=== PATIENT | male | born 1950 | race Caucasian/White ===

== ENCOUNTER 2017-10-17 19:30 | Outpatient (CLI) | payer MEDICARE, OTHER | END 2017-10-17 19:31 | disposition home or self-care (01) | LOC: SLEEPLAB 19:30 | PROVIDERS: ATTEND Family Medicine | DX: G47.33 Obstructive sleep apnea (adult) (pediatric) (principal); I25.10 Atherosclerotic heart disease of native coronary artery without angina pectoris; I10 Essential (primary) hypertension | CPT/HCPCS: 95811 ==

== ENCOUNTER 2017-10-26 11:19 | Outpatient (CLI) | payer MEDICARE, OTHER ==
--- NOTE | 2017-10-26 11:51 | RAD ---
TWO VIEWS CHEST: Date: 10-26-17 Comparison: 04-28-17 History: Dyspnea. FINDINGS: There are sternotomy wires. Normal cardiac silhouette. Pulmonary vessels and hilum are normal. Lungs are hyperinflated. Chronic changes of the left lung base. No pneumothorax. No osseous abnormalities. IMPRESSION: 1. Chronic changes. Hyperinflation. 2. Sequellae of previous granulomatous disease. POS: [facility]
== END 2017-10-26 11:20 | disposition home or self-care (01) ==
LOC: RAD 11:19
PROVIDERS: ATTEND Internal Medicine
DX: R06.00 Dyspnea, unspecified (principal); R91.8 Other nonspecific abnormal finding of lung field; G09 Sequelae of inflammatory diseases of central nervous system; D71 Functional disorders of polymorphonuclear neutrophils
CPT/HCPCS: 71046

== ENCOUNTER 2019-03-01 20:30 | Outpatient (CLI) | payer MEDICARE, OTHER | END 2019-03-01 20:31 | disposition home or self-care (01) | LOC: SLEEPLAB 20:30 | PROVIDERS: ATTEND Internal Medicine | DX: G47.33 Obstructive sleep apnea (adult) (pediatric) (principal); R06.83 Snoring; R53.83 Other fatigue; R35.1 Nocturia; R09.89 Other specified symptoms and signs involving the circulatory and respiratory systems | CPT/HCPCS: 95811 ==

== ENCOUNTER 2019-04-19 20:02 | Inpatient (IN) | payer MEDICARE, OTHER ==
[2019-04-19] MEDS ORDERED: Enoxaparin Sodium 80 MG/0.8 ML SYRINGE SC SCH (21:00)
--- NOTE | 2019-04-19 21:15 | RAD ---
Chest one view HISTORY: Chest pain. COMPARISON: 10/26/2017. FINDINGS: Cardiac silhouette and pulmonary vasculature are unremarkable. Mediastinum is midline with postoperative changes. Calcified granulomata are consistent with healed granulomatous disease. Linear scarring at the left base. No lobar consolidation or evidence of pneumothorax. IMPRESSION: Chronic-type findings are stable. No active cardiopulmonary abnormalities are demonstrate d.
[2019-04-19 21:19] LABS: #Eosinphils 0.1 thou/uL (0.0-0.7); #Lymphocytes 1.2 thou/uL (1.20-3.40); #Monocytes 0.7 thou/uL (0.11-0.59); #Neutrophils 6.5 thou/uL (1.40-6.50); %Basophils 0.5 % (0.0-1.0); %Eosinophils 1.5 % (0.0-10.0); %Lymphocytes 14.3 % (21.0-51.0); %Monocytes 7.8 % (0.0-10.0); %Neutrophils 75.9 % (42.0-75.0); Hemoglobin 15.3 g/dL (14.0-18.0); Mean Corpuscular HGB CONC 35.4 g/dL (32.0-36.0); Mean Corpuscular Hemoglobin 33.5 pg (27.0-31.0); Mean Corpuscular Volume 94.5 fL (78.0-98.0); Mean Platelet Volume 7.1 fL (7.4-10.4); Platelet Count 211 thou/uL (130-400); RBC Distribution Width 12.1 % (11.5-14.5); Red Blood Cell (RBC) Count 4.58 mill/uL (4.70-6.10); White Blood Cell (WBC) Count 8.6 thou/uL (4.8-10.8)
[2019-04-19] MEDS ORDERED: Aspirin 325 MG TAB ONE (21:30)
[2019-04-19 21:40] LABS: ALT (SGPT) 16 U/L (8-55); AST (SGOT) 46 U/L (5-34); Albumin 4.3 g/dL (3.4-4.8); Alkaline Phosphatase 54 U/L (40-150); Anion Gap 13 mmol/L (10-20); BUN (Urea Nitrogen) 16 mg/dL (8.4-25.7); Bilirubin, Total 0.7 mg/dL (0.2-1.2); CK (CPK) 393 U/L (30-200); Calc. Creatinine Clearance 0 mL/min (70-130); Calcium 9.6 mg/dL (7.8-10.44); Carbon Dioxide 25 mmol/L (23-31); Chloride 105 mmol/L (98-107); Estimated GFR-MDRD 87; Globulin 2.9 g/dL (2.4-3.5); Glucose 106 mg/dL (80-115); Potassium 3.7 mmol/L (3.5-5.1); Protein, Total 7.2 g/dL (5.8-8.1); Sodium 139 mmol/L (136-145)
[2019-04-19 22:12] LABS: CKMB 38.4 ng/mL (0-6.6)
[2019-04-19] MEDS ORDERED: Acetaminophen 650 MG Suppository PR PRN (23:39)
[2019-04-19] MEDS ORDERED: Ondansetron ODT 4 MG TAB PO PRN (23:39)
[2019-04-19] MEDS ORDERED: Ondansetron PF 4 MG/2 ML Vial IVP PRN (23:39)
[2019-04-19] MEDS ORDERED: Acetaminophen 325 MG TAB PO PRN (23:39)
--- NOTE | 2019-04-20 00:28 | HP ---
PRIMARY CARE DOCTOR: The patient follows with Dr. Montiel. CODE STATUS: Full code. TIME OF EVALUATION: 11:40 p.m. CHIEF COMPLAINT: Chest pain. HISTORY OF PRESENT ILLNESS: This is a 69-year-old male patient with past medical history of coronary artery disease, status post CABG in 2012. The patient has been doing well for the past few years. No significant coronary problems. The patient also has a history of hyperlipidemia, hypertension, came to the hospital after having severe chest pain today that was sudden onset. When he was jogging, the pain was radiating to his both shoulders and also his arms got weak. The pain relieved by itself to the point that he waited and scheduled an appointment to see Dr. Montiel. Dr. Montiel did a troponin, troponin was around 2. For that reason, he was sent here to the hospital. The troponins continue to trend up, last one was 4. Patient has been given Lovenox. Plan is to do cardiac cath in the morning. The symptoms were severe, triggered by exercise, alleviated by itself. REVIEW OF SYSTEMS: Patient also has associated nausea and chills. All other systems were reviewed and negative except for the findings mentioned above. PAST MEDICAL HISTORY: Positive for hyperlipidemia, hypertension, coronary artery disease. PAST SURGICAL HISTORY: CABG in 2012 for 5 vessels. PSYCHIATRIC HISTORY: No previous psych history. FAMILY HISTORY: Reviewed and noncontributory to current presentation. SOCIAL HISTORY: The patient drinks socially. No drugs. No smoking history. Lives with . KNOWN ALLERGIES: To penicillin. REPORTED MEDICATIONS: 1. Losartan. 2. Lipitor. 3. Ambien. PHYSICAL EXAMINATION: VITAL SIGNS: On presentation, blood pressure 124/76, heart rate 73, respiratory rate was 18, temperature 97.9. Pain was 0/10. Oxygen saturation was 96% on room air. GENERAL APPEARANCE: The patient is alert, oriented, in no acute distress. HEENT: Eyes; normal conjunctivae. Moist oral mucosa. Anicteric. No JVD. RESPIRATORY: Bilateral air entry. No rales. No wheezes. Symmetric expansion. CARDIOVASCULAR: Normal rate. Regular rhythm. No murmurs. No gallop. No edema. ABDOMEN: Soft. Normal bowel sounds. MUSCULOSKELETAL: Baseline range of motion and strength. SKIN: Warm and intact. No pallor. No rash. No redness. Capillary refill seems to be intact. NEUROLOGIC: No evidence of any new focal weakness. Cranial nerves seem to be intact. PSYCHIATRIC: The patient is in good mood. No anxiety. Optimal judgment. EKG was reviewed. The patient has a normal sinus rhythm with a rate of 69, no significant acute ischemic findings. Chest x-ray was reviewed. The patient has chronic findings that are stable. No active cardiopulmonary abnormalities were demonstrated. LABORATORY DATA: Reviewed. The patient has white count 9.6, hemoglobin 15.3, MCV 94.5, platelet count 211. Chemistry; sodium 139, potassium 3.7, chloride 105, carbon dioxide 25, anion gap 13, BUN 16, creatinine 0.87, GFR 87, glucose 106, calcium 9.6, total bilirubin 0.7. LFTs were negative. CK 393, CK-MB 38.4, troponin 4.257. Serum total protein 7.2, albumin 4.3, globulin 2.9, albumin globulin ratio is 1.5. ASSESSMENT AND PLAN: The patient will be placed in the hospital with following medical problems; 1. Non-STEMI. The patient has positive elevated troponin, normal EKG, the patient had chest pain. Home medications will be reconciled. The patient is getting Lovenox and will go for cardiac cath in the morning. 2. Controlled hypertension. We will reconcile home medications. This is chronic, stable. 3. Deep venous thrombosis prophylaxis. 4. Hyperlipidemia. Reconcile home medications. Low-cholesterol diet is advised. Job ID: [id number]
[2019-04-20 01:10] LABS: Troponin I 7.747 ng/mL (< 0.028)
[2019-04-20 02:58] VITALS: BMI 23.2
[2019-04-20 06:36] LABS: #Eosinphils 0.1 thou/uL (0.0-0.7); #Lymphocytes 1.3 thou/uL (1.20-3.40); #Monocytes 0.6 thou/uL (0.11-0.59); #Neutrophils 4.7 thou/uL (1.40-6.50); %Basophils 0.7 % (0.0-1.0); %Eosinophils 1.2 % (0.0-10.0); %Lymphocytes 18.7 % (21.0-51.0); %Monocytes 9.3 % (0.0-10.0); %Neutrophils 70.1 % (42.0-75.0); Hemoglobin 14.8 g/dL (14.0-18.0); Mean Corpuscular HGB CONC 34.4 g/dL (32.0-36.0); Mean Corpuscular Hemoglobin 32.1 pg (27.0-31.0); Mean Corpuscular Volume 93.4 fL (78.0-98.0); Mean Platelet Volume 7.2 fL (7.4-10.4); Platelet Count 190 thou/uL (130-400); RBC Distribution Width 12.1 % (11.5-14.5); White Blood Cell (WBC) Count 6.7 thou/uL (4.8-10.8)
[2019-04-20 06:58] LABS: Anion Gap 11 mmol/L (10-20); BUN (Urea Nitrogen) 13 mg/dL (8.4-25.7); Calc. Creatinine Clearance 92 mL/min (70-130); Calcium 9.2 mg/dL (7.8-10.44); Carbon Dioxide 24 mmol/L (23-31); Chloride 107 mmol/L (98-107); Estimated GFR-MDRD Greater than 90; Glucose 90 mg/dL (80-115); Potassium 3.8 mmol/L (3.5-5.1); Sodium 138 mmol/L (136-145)
[2019-04-20] MEDS ORDERED: Zolpidem Tartrate 5 MG TAB PO PRN (07:33)
[2019-04-20] MEDS ORDERED: Nitroglycerin 0.4 MG TAB (25 Tab Bottle) PO PRN (07:34)
[2019-04-20] MEDS ORDERED: Nitroglycerin 2% Ointment 1 INCH/1 GM Packet TOP SCH (07:45)
[2019-04-20] MEDS ORDERED: Lidocaine 1% (PF) 30 ML VIAL ONE (08:23)
[2019-04-20] MEDS ORDERED: Diazepam 5 MG TAB PO SCH (08:30)
[2019-04-20] MEDS ORDERED: Communication Order-Pharmacy FS SCH (08:30)
[2019-04-20] MEDS: Losartan 25 MG TAB PO SCH ×2 (08:36→21:24)
[2019-04-20] MEDS: Sodium Chloride 0.9% 1,000 ML IV SCH ×2 (08:38→18:35)
[2019-04-20] MEDS: Metoprolol Tartrate 25 MG TAB PO SCH ×2 (08:47→21:25)
[2019-04-20 08:48] LABS: CKMB 49.7 ng/mL (0-6.6)
[2019-04-20] MEDS ORDERED: Aspirin 325 MG TAB PO SCH (09:00)
[2019-04-20] MEDS ORDERED: Aspirin 325 mg Enteric Coated Tablet PO SCH (09:00)
--- NOTE | 2019-04-20 09:04 | PRG ---
DATE OF SERVICE: 04/20/2019 Mr. Zelaya is a 69-year-old gentleman, who presented to our office yesterday. He earlier in the day had had gone for a run, who is very hot and he had to stop because he had bilateral arm pain. The arm pain resolved very slowly. He is seen in our office. EKG reveals a previous inferior infarct, but no other acute changes. Because of concern for the length of the duration of the discomfort, he was sent to the lab for troponin level. The troponin level was 2.339. Therefore, he was referred to the emergency room. The patient's troponin in followup was 4.257, then 7.7 and this morning, 9.78. The patient therefore is scheduled for cardiac catheterization. He understands risk including stroke, heart attack, iodine allergy, loss of blood supply to leg or kidney, stent thrombosis, stent restenosis, and may be that he has occluded small saphenous vein graft, in which case medical therapy will be the most appropriate. If he does have a significant stenosis amenable to stenting that will be performed. He was loaded with Brilinta 180 mg yesterday. He is also on aspirin. The patient understands and wishes to proceed. Job ID: [id number]
[2019-04-20] MEDS ORDERED: Fentanyl 100 MCG/2 ML VIAL ONE ×3 (09:05→13:54)
[2019-04-20] MEDS ORDERED: Midazolam HCl 2 mg/2 ml Vial ONE ×2 (09:05→10:26)
[2019-04-20] MEDS ORDERED: Iopamidol 370 76% 50 ML VIAL FS ONE (09:48)
[2019-04-20] MEDS ORDERED: Iopamidol 370 76% 100 ML VIAL ONE (09:48)
[2019-04-20] MEDS ORDERED: Nitroglycerin 100MG/250ML BOT 250 ML ONE (09:52)
[2019-04-20] MEDS ORDERED: Heparin 10,000 UNITS/1 ML VIAL ONE (09:52)
[2019-04-20 10:08] LABS: Cardiac Risk 2.4 (Less than 4.5)
--- NOTE | 2019-04-20 11:03 | PDOC.HOSPP ---
- Subjective Encounter Date: 04/20/19 Encounter Time: 08:30 Subjective: Patient seen and examined for NSTEMI. No CP or SOB. No new complaints. No overnight events - Objective Vital Signs & Weight: Vital Signs (12 hours) Temp Pulse Resp BP Pulse Ox 04/20/19 08:00 97.6 F 68 17 136/76 96 04/20/19 03:20 97.6 F 71 16 138/86 98 04/20/19 01:55 97.6 F 70 18 129/73 96 Weight Weight 162 lb 1.6 oz I&O: 04/19/19 04/20/19 04/21/19 06:59 06:59 06:59 Intake Total 300 Balance 300 Result Diagrams: 04/20/19 06:12 04/20/19 06:12 Additional Labs: Laboratory Tests 04/20/19 06:12 CK-MB (CK-2) 49.7 H* Troponin I 9.780 H* EKG Reviewed by me: Yes (Tele SR) Hospitalist ROS - Review of Systems Respiratory: denies: cough, dry, shortness of breath, hemoptysis, SOB with excertion, pleuritic pain, sputum, wheezing, other Cardiovascular: denies: chest pain, palpitations, orthopnea, paroxysmal noc. dyspnea, edema, light headedness, other Gastrointestinal: denies: nausea, vomitting, abdominal pain, diarrhea, constipation, melena, hematochezia, other - Medication Medications: Active Medications Generic Name Dose Route Start Last Admin Trade Name Freq PRN Reason Stop Dose Admin Aspirin 325 mg 04/20/19 09:00 04/20/19 08:41 Ecotrin PO Not Given DAILY JOY Sodium Chloride 1,000 mls @ 100 mls/hr 04/20/19 08:30 04/20/19 08:38 Normal Saline 0.9% IV Not Given .Q10H JOY Losartan Potassium 12.5 mg 04/20/19 09:00 04/20/19 08:36 Cozaar PO 12.5 mg BID JOY Administration Metoprolol Tartrate 12.5 mg 04/20/19 09:00 04/20/19 08:47 Lopressor PO 12.5 mg BID JOY Administration Nitroglycerin 0.5 inch 04/20/19 07:45 04/20/19 08:38 Nitro-Bid 2% Ointment TOP Not Given Q8H JOY Sodium Chloride 10 ml 04/20/19 09:00 04/20/19 08:41 Flush - Normal Saline IVF 10 ml Q12HR JOY Administration - Exam General Appearance: NAD, awake alert Eye: anicteric sclera ENT: normocephalic atraumatic Neck: supple, no JVD Heart: RRR, no murmur, no gallops, no rubs Respiratory: CTAB, no wheezes, no rales, no ronchi Gastrointestinal: soft, non-tender, non-distended, normal bowel sounds Extremities: no edema Skin: no rashes Psychiatric: normal affect, A&O x 3 Hosp A/P (1) NSTEMI (non-ST elevated myocardial infarction) Code(s): I21.4 - NON-ST ELEVATION (NSTEMI) MYOCARDIAL INFARCTION Status: Acute (2) CAD (coronary artery disease) Code(s): I25.10 - ATHSCL HEART DISEASE OF [place] CORONARY ARTERY W/O ANG PCTRS Status: Chronic (3) HTN (hypertension) Code(s): I10 - ESSENTIAL (PRIMARY) HYPERTENSION Status: Chronic (4) HLD (hyperlipidemia) Code(s): E78.5 - HYPERLIPIDEMIA, UNSPECIFIED Status: Chronic - Plan plan discussed w/ family Cont ASA Resume Statins Add low dose Coreg Resume Losartan Cath today
[2019-04-20] MEDS ORDERED: TICAGRELOR 90 MG TABLET ONE (11:16)
[2019-04-20] MEDS ORDERED: Fentanyl 100 MCG/2 ML VIAL SLOW IVP PRN (13:53)
[2019-04-20] MEDS ORDERED: Fentanyl 100 MCG/2 ML VIAL SLOW IVP SCH ×2 (14:00→17:30)
[2019-04-20] MEDS ORDERED: traMADol HCl 50 MG TAB PO PRN (14:00)
[2019-04-20] MEDS ORDERED: Atorvastatin Calcium 40 MG TAB PO SCH (21:00)
[2019-04-20] MEDS: TICAGRELOR 90 MG TABLET PO SCH (21:22)
[2019-04-21 05:49] LABS: #Monocytes 0.7 thou/uL (0.11-0.59); #Neutrophils 5.1 thou/uL (1.40-6.50); %Basophils 0.7 % (0.0-1.0); %Eosinophils 0.6 % (0.0-10.0); %Lymphocytes 14.4 % (21.0-51.0); %Monocytes 10.4 % (0.0-10.0); %Neutrophils 73.9 % (42.0-75.0); Hemoglobin 14.4 g/dL (14.0-18.0); Mean Corpuscular HGB CONC 33.2 g/dL (32.0-36.0); Mean Corpuscular Hemoglobin 31.7 pg (27.0-31.0); Mean Corpuscular Volume 95.4 fL (78.0-98.0); Mean Platelet Volume 7.4 fL (7.4-10.4); Platelet Count 183 thou/uL (130-400); RBC Distribution Width 12.2 % (11.5-14.5); Red Blood Cell (RBC) Count 4.55 mill/uL (4.70-6.10); White Blood Cell (WBC) Count 6.8 thou/uL (4.8-10.8)
[2019-04-21 06:12] LABS: ALT (SGPT) 18 U/L (8-55); AST (SGOT) 62 U/L (5-34); Albumin 3.6 g/dL (3.4-4.8); Alkaline Phosphatase 49 U/L (40-150); Anion Gap 12 mmol/L (10-20); BUN (Urea Nitrogen) 10 mg/dL (8.4-25.7); Bilirubin, Total 1.4 mg/dL (0.2-1.2); Calc. Creatinine Clearance 95 mL/min (70-130); Calcium 8.7 mg/dL (7.8-10.44); Carbon Dioxide 24 mmol/L (23-31); Chloride 105 mmol/L (98-107); Estimated GFR-MDRD Greater than 90; Globulin 2.4 g/dL (2.4-3.5); Glucose 77 mg/dL (80-115); Potassium 3.7 mmol/L (3.5-5.1); Sodium 137 mmol/L (136-145)
[2019-04-21] MEDS ORDERED: Aspirin Chewable 81 MG TAB PO SCH (09:00)
[2019-04-21] MEDS: Metoprolol Tartrate 25 MG TAB PO SCH (09:32)
[2019-04-21] MEDS: TICAGRELOR 90 MG TABLET PO SCH (09:32)
[2019-04-21] MEDS: Losartan 25 MG TAB PO SCH (09:32)
[2019-04-21 13:27] VITALS: TEMP 98.9
--- NOTE | 2019-04-21 13:53 | PRG ---
DATE OF SERVICE: 04/21/2019 SUBJECTIVE: Mr. Zelaya is doing well today. No chest pain or pressure. His groin feels fine. OBJECTIVE: VITAL SIGNS: Blood pressure 114/79, pulse 89 LUNGS: Clear. CARDIAC: Normal S1, normal S2. ASSESSMENT: 1. Status post non-ST elevation myocardial infarction. 2. Previous bypass surgery. 3. Hypercholesterolemia, controlled. PLAN: 1. We will go home on ticagrelor 90 mg twice a day. 2. Aspirin 81 mg a day. 3. Toprol-XL 25 mg a day. 4. Losartan 25 mg a day. 5. Atorvastatin 40 mg a day. Job ID: [id number] MTDD
[2019-04-21 15:48] VITALS: BP 101/62
--- NOTE | 2019-04-23 16:44 | EKG ---
Test Reason : S/P STENT Blood Pressure : / mmHG Vent. Rate : 057 BPM Atrial Rate : 057 BPM P-R Int : 184 ms QRS Dur : 094 ms QT Int : 444 ms P-R-T Axes : 065 -10 -03 degrees QTc Int : 432 ms Sinus bradycardia Minimal voltage criteria for LVH, may be normal variant Inferior infarct (cited on or before 25-JAN-2012) Abnormal ECG Confirmed by NORMAN FOREMAN ([id number]) on 04/23/2019 4:44:18 PM Referred By: MACIEJ Confirmed By:NORMAN FOREMAN
== END 2019-04-21 15:00 | disposition home or self-care (01) | DRG 247 ==
LOC: ERS 20:02 → ERHOLD 22:16 → OBSVTOIN 23:49 → 2NO 04-20 02:22
PROVIDERS: ADMIT Hospitalist; ATTEND Hospitalist
PROC: 027036Z Dilation of Coronary Artery, One Artery with Three Drug-eluting Intraluminal Devices, Percutaneous Approach (ICD-10-PCS; principal; 2019-04-20)
PROC: 4A023N7 Measurement of Cardiac Sampling and Pressure, Left Heart, Percutaneous Approach (ICD-10-PCS; 2019-04-20)
PROC: B2131ZZ Fluoroscopy of Multiple Coronary Artery Bypass Grafts using Low Osmolar Contrast (ICD-10-PCS; 2019-04-20)
PROC: B2151ZZ Fluoroscopy of Left Heart using Low Osmolar Contrast (ICD-10-PCS; 2019-04-20)
PROC: B2111ZZ Fluoroscopy of Multiple Coronary Arteries using Low Osmolar Contrast (ICD-10-PCS; 2019-04-20)
DX: I21.4 Non-ST elevation (NSTEMI) myocardial infarction (principal); I25.10 Atherosclerotic heart disease of native coronary artery without angina pectoris; E78.00 Pure hypercholesterolemia, unspecified; I10 Essential (primary) hypertension; Z79.899 Other long term (current) drug therapy; Z95.1 Presence of aortocoronary bypass graft; Z88.0 Allergy status to penicillin
CPT/HCPCS: 36415; 71045; 76942; 80048; 80053; 80061; 82550; 82553; 83735; 84484; 85025; 85347; 92928; 93005; 93010; 93306; 93455; 93798; 94760; 96372; 99152; 99153; C1769; C1874; C1887; C9600; J1644; J1650; J2001; J2250; J3010; Q9967

== ENCOUNTER 2019-04-23 10:46 | Inpatient (IN) | payer MEDICARE, OTHER ==
[2019-04-23] MEDS ORDERED: ISOVUE-370 76%-LOCM 1 ML ONE (10:50)
[2019-04-23 11:20] LABS: #Eosinphils 0.1 thou/uL (0.0-0.7); #Monocytes 0.7 thou/uL (0.11-0.59); #Neutrophils 6.8 thou/uL (1.40-6.50); %Basophils 0.3 % (0.0-1.0); %Eosinophils 0.6 % (0.0-10.0); %Lymphocytes 11.8 % (21.0-51.0); %Monocytes 7.9 % (0.0-10.0); %Neutrophils 79.4 % (42.0-75.0); Hemoglobin 13.7 g/dL (14.0-18.0); Mean Corpuscular HGB CONC 33.6 g/dL (32.0-36.0); Mean Corpuscular Volume 95.3 fL (78.0-98.0); Mean Platelet Volume 7.7 fL (7.4-10.4); Platelet Count 164 thou/uL (130-400); RBC Distribution Width 12.3 % (11.5-14.5); Red Blood Cell (RBC) Count 4.27 mill/uL (4.70-6.10); White Blood Cell (WBC) Count 8.6 thou/uL (4.8-10.8)
--- NOTE | 2019-04-23 11:50 | RAD ---
CHEST 1 VIEW: Date: 04/23/19 INDICATION: Syncope. COMPARISON: Prior exam dated 04/19/19. FINDINGS: Calcified granuloma of the right upper lobe is stable. Emphysematous change is similar appearing. Pos t CABG change is stable. No consolidation, pleural effusion, or pneumothorax is evident. No acute oss eous abnormality is evident. IMPRESSION: No acute cardiopulmonary abnormality. POS: OFF
[2019-04-23 11:52] LABS: ALT (SGPT) 14 U/L (8-55); AST (SGOT) 27 U/L (5-34); Albumin 3.6 g/dL (3.4-4.8); Alkaline Phosphatase 47 U/L (40-150); Anion Gap 13 mmol/L (10-20); BUN (Urea Nitrogen) 12 mg/dL (8.4-25.7); Bilirubin, Total 0.9 mg/dL (0.2-1.2); Calc. Creatinine Clearance 0 mL/min (70-130); Calcium 8.8 mg/dL (7.8-10.44); Carbon Dioxide 23 mmol/L (23-31); Chloride 107 mmol/L (98-107); Estimated GFR-MDRD Greater than 90; Globulin 2.4 g/dL (2.4-3.5); Glucose 114 mg/dL (80-115); Potassium 3.7 mmol/L (3.5-5.1); Sodium 139 mmol/L (136-145)
[2019-04-23 12:10] LABS: CKMB 1.7 ng/mL (0-6.6)
--- NOTE | 2019-04-23 14:34 | CT ---
Exam: CT angiogram of the chest HISTORY: Syncope COMPARISON: None TECHNIQUE: CT angiogram of the chest is performed in the axial plane. Three-dimensional reformatted i mages are submitted for interpretation FINDINGS: Mediastinum: No mass, lymphadenopathy or hematoma. HEART: Normal size. No significant pericardial fluid. Aorta: No aneurysm or dissection Upper solid abdominal viscera: No abnormality enhancement. 3.4 cm cyst in the left kidney. Trachea and central bronchi: Patent Pleural spaces: No effusion Lung parenchyma: No masses or consolidation. Linear opacities likely represent atelectatic change. Po ssible scarring in the left lower lobe is noted. Pneumothorax: None Osseous structures: No lytic or blastic lesions Pulmonary arteries: Adequate contrast opacification pulmonary arterial system to the level of segment al arteries. No filling defect to suggest pulmonary embolism IMPRESSION: 1. No evidence of pulmonary artery embolism to the level of segmental arteries 2. Scarring and atelectasis in the lung bases. 3. Left renal cyst.
[2019-04-23 15:47] LABS: Troponin I 2.551 ng/mL (< 0.028)
[2019-04-23] MEDS ORDERED: Nitroglycerin 0.4 MG TAB (25 Tab Bottle) SL PRN (16:21)
[2019-04-23 16:33] VITALS: BMI 23.3
--- NOTE | 2019-04-23 17:58 | HP ---
PRIMARY CARE PROVIDER: Dr. Everett Douglas. [facility] HISTORY OF PRESENT ILLNESS: The patient had coronary artery bypass graft with 5 bypasses in 2011. A 5 days ago, he was jogging and he got pain in both arms and elbows. It dissipated over about an hour and a half. They called Dr. Montiel. He went and saw him. EKG was okay, but the troponin was 2. He went to the hospital. Troponins actually went up to 5 and 7. He had no chest pain with that. He had a cardiac cath and 3 PCIs in the occluded right coronary artery. Two stays later , he was somewhat lightheaded. He had been started on metoprolol and Brilinta. This a.m., he got up, had some coffee, was sitting, stood up, fainted, had nausea and vomiting x3. He went and sat as a lazy boy. He had some peripheral vision defect with some spots before his eyes. He got into the car and his was driving him to the ER. When he passed out again, she pulled into the fire station. He was brought to the emergency room by ambulance. By history, his pulse rate was high 40s to low 50s at that time. Currently, he is awake and alert. No chest pain. No shortness of breath. No arm pain. His lowest blood pressure recorded in the emergency room was 129/77 with a pulse of 67. PAST MEDICAL HISTORY: As mentioned before, he had a myocardial infarction and he had coronary artery bypass in 2011. He had PCI in right coronary artery 5 days ago. He has a history of hypertension and dyslipidemia. ALLERGIES: HIS CURRENT ALLERGIES, PENICILLIN. MEDICATIONS: Current medications; 1. Ambien 5 mg at bedtime p.r.n. 2. Brilinta 90 mg p.o. b.i.d. 3. Nitrostat 0.4 mg p.r.n. q.5 minutes. 4. Metoprolol 25 mg a day. 5. Cozaar 12.5 mg twice a day. 6. Atorvastatin 40 mg at bedtime. 7. Aspirin 81 mg daily. SOCIAL HISTORY: Retired captain/airline pilot. Lives with his . Full code status. Has occasional social drink. No smoking history. No illicit drugs. FAMILY HISTORY: No coronary artery disease at young age. REVIEW OF SYSTEMS: GENERAL: Prior to this episode, he has had no dizziness, fainting. HEENT: Eyes; spots before his eyes this morning, none previous. No double vision or blurred vision. Ears, nose, and throat; no ear pain or drainage. No nasal bleeding. No trouble swallowing. CARDIAC: No chest pain, orthopnea, or paroxysmal nocturnal dyspnea. RESPIRATION: No cough, wheezing, or asthma. GASTROINTESTINAL: No nausea, vomiting, diarrhea, or constipation. GENITOURINARY: Frequent nocturia, frequency in the daytime. No dysuria. No hematuria. MUSCULOSKELETAL: No pain or swelling in his arms or legs. Other than that, described in the present illness. NEUROLOGICAL: No strokes, seizures, or focal weakness. PSYCHIATRIC: No anxiety or depression. SKIN: No bruising, bleeding, or rash. HEME/LYMPH: No tender or swollen lymph nodes in axilla, inguinal, cervical area. PHYSICAL EXAMINATION: GENERAL: Alert, oriented, cooperative, pleasant gentleman. VITAL SIGNS: His blood pressure was 130/80, pulse 68, respirations 16, temperature 98. HEAD, EYES, EARS, NOSE, AND THROAT: Pupils are equal, round, and reactive to light. Extraocular movements are intact. Sclerae are white. Tympanic membranes are clear. Nose is clear. Oral mucous membranes are wet. NECK: Supple without jugular venous distention, adenopathy, or thyromegaly. CHEST: Clear to auscultation and percussion. HEART: Had a regular rate and rhythm. First and second heart sounds are clear. There are no appreciated murmurs or gallops. ABDOMEN: Soft. Bowel sounds are normal. No hepatosplenomegaly. No masses. No bruits. EXTREMITIES: No cyanosis, clubbing, or edema. PULSES: Carotid, radial, femoral, and dorsalis pedis pulses intact and symmetric. SKIN: Warm and dry without bruises or rash. HEME/LYMPH: No tender or swollen lymph nodes in axilla, inguinal, or cervical area. NEUROLOGIC: Cranial nerves 2 through 12 are intact. DIAGNOSTIC DATA: EKG, regular sinus rhythm, evidence for old inferior myocardial infarction, some minimal T-wave abnormality in the lateral precordial leads, reviewed by me. His chest x-ray reviewed by myself reveals clear lung martinez, vertical heart. No evidence for CHF, pneumothorax, pneumonia, etc. His CT of the thorax done for pulmonary emboli without getting a D-dimer first, it was negative. LABORATORY DATA: CBC; white count 8.6, hemoglobin 13.7, and platelet count 164, 000. Comprehensive metabolic profile is normal. Troponin-I 2.2, 2.5. ASSESSMENT AND PLAN: 1. Syncope. 2. Coronary artery disease with recent PCI and moderately elevated troponins. 3. Recent addition of beta ro and Brilinta. The patient has hypertension, not hypertensive on current study. Has dyslipidemia, on atorvastatin. At this time , we will proceed with orthostatic blood pressure measurements q.4 hours. The patient will be monitored overnight. Carotid ultrasound will be ordered. Case has been discussed with Dr. Montiel. He will see the patient in the morning. He will see him tonight if anything urgent happens. The patient's medicine will be continued. Job ID: [id number] MTDD
--- NOTE | 2019-04-23 19:44 | PRG ---
DATE OF SERVICE: SUBJECTIVE: Mr. Zelaya had two syncopal episodes today. One early in the morning, he got up to get some coffee, felt weak and lightheaded and then lost consciousness, woke up underneath his desk. He recovered. He did not have any arm pain or chest pain. We talked to his friend, Dr. Hernandez. Dr. Hernandez recommended he go to the emergency room. He was driven to the emergency room by his . However, en route while Mr. Zelaya was in the sitting position. He lost consciousness again and his said he looked "scary," unresponsive. She pulled into the emergency medical services assistant area, the fire department. They brought him to the emergency room on emergency basis. The patient has been okay since he has been here. PAST HISTORY: Recent saphenous vein graft occlusion of the right coronary and extensive stenting done in the [place] right coronary as outlined in the chart with good result. The stent did extend distally into the right coronary all the way to the very proximal segment. The lesion did go near the AV niecy artery and this was stented across in order to reach normal nonobstructive portion of the artery. There were three long stents placed as mentioned. The patient did not have any arm pain with this episode. The patient is doing fine now. PHYSICAL EXAMINATION: VITAL SIGNS: Blood pressure 127/66, pulse 67. LUNGS: Clear. CARDIAC: Normal S1, normal S2. ABDOMEN: Soft, nontender. EXTREMITIES: No clubbing or cyanosis. There is no edema. DIAGNOSTIC DATA: EKG shows a previous infarct. No acute changes. The GA interval was within normal limits. ASSESSMENT: 1. Recent inferior myocardial infarction with a peak troponin of 9 and is related to the saphenous vein graft occlusion to the right coronary artery branch, which was supplying the right coronary. 2. Two syncopal episodes, the first could have potentially been orthostatic hypotension, but the second is suspicious for a dysrhythmia. I am concerned that he may have had some transient AV block or even ventricular arrhythmias. His ejection fraction most recently was thought to be 40% on catheterization, but actually 50% to 55% on echocardiogram prior to discharge. Ventricular arrhythmias could be possible, but I think statistically especially in view of the situation, this could have also been AV niecy block. We will monitor the patient overnight and reassess. Consideration for EP consultation will be given depending on the situation. He may need a pacemaker. If no dysrhythmias identified, consideration for LifeVest will be given. Job ID: [id number]
[2019-04-23] MEDS: TICAGRELOR 90 MG TABLET PO SCH (20:49)
[2019-04-23] MEDS: Losartan 25 MG TAB PO SCH (20:49)
[2019-04-23] MEDS: Atorvastatin Calcium 40 MG TAB PO SCH (20:49)
[2019-04-23] MEDS: Zolpidem Tartrate 5 MG TAB PO PRN (21:56)
[2019-04-24 06:26] LABS: Anion Gap 9 mmol/L (10-20); BUN (Urea Nitrogen) 13 mg/dL (8.4-25.7); Calc. Creatinine Clearance 88 mL/min (70-130); Calcium 9.1 mg/dL (7.8-10.44); Carbon Dioxide 26 mmol/L (23-31); Chloride 105 mmol/L (98-107); Estimated GFR-MDRD Greater than 90; Glucose 94 mg/dL (80-115); Potassium 3.9 mmol/L (3.5-5.1); Sodium 136 mmol/L (136-145)
[2019-04-24 06:35] LABS: Troponin I 3.117 ng/mL (< 0.028)
--- NOTE | 2019-04-24 07:49 | ULT ---
US Carotid Doppler STANDARD History: Syncope Comparison: None. Findings: Real-time grayscale and color evaluation extracranial carotid and vertebral arteries was pe rformed. Moderate atherosclerotic plaque both proximal internal carotid arteries. Antegrade flow both vertebra l arteries. No elevated peak systolic velocities within the internal carotid arteries. Impression: No hemodynamically significant stenosis.
[2019-04-24] MEDS: Aspirin Chewable 81 MG TAB PO SCH (09:17)
[2019-04-24] MEDS: TICAGRELOR 90 MG TABLET PO SCH ×2 (09:17→21:23)
[2019-04-24] MEDS: Losartan 25 MG TAB PO SCH ×2 (09:17→21:23)
[2019-04-24] MEDS: Enoxaparin Sodium 40 MG/0.4 ML SYRINGE SC SCH (09:18)
--- NOTE | 2019-04-24 12:30 | PDOC.HOSPP ---
- Subjective Encounter Date: 04/24/19 Encounter Time: 12:28 Subjective: near syncope with bradycardia overnite - Objective Vital Signs & Weight: Vital Signs (12 hours) Temp Pulse Resp BP BP Pulse Ox 04/24/19 12:04 97.4 F L 67 20 139/69 97 04/24/19 07:17 97.8 F 71 16 115/70 94 L 04/24/19 03:39 65 18 142/80 H Weight Weight 163 lb I&O: 04/23/19 04/24/19 04/25/19 06:59 06:59 06:59 Intake Total 600 Balance 600 Result Diagrams: 04/23/19 11:02 04/24/19 05:23 Hospitalist ROS - Medication Medications: Active Medications Generic Name Dose Route Start Last Admin Trade Name Freq PRN Reason Stop Dose Admin Aspirin 81 mg 04/24/19 09:00 04/24/19 09:17 Aspirin Chewable PO 81 mg DAILY JOY Administration Atorvastatin Calcium 40 mg 04/23/19 21:00 04/23/19 20:49 Lipitor PO 40 mg HS JOY Administration Enoxaparin Sodium 40 mg 04/24/19 09:00 04/24/19 09:18 Lovenox SC Not Given 0900 JOY Losartan Potassium 12.5 mg 04/23/19 21:00 04/24/19 09:17 Cozaar PO 12.5 mg BID JOY Administration Metoprolol Succinate 12.5 mg 04/24/19 09:00 04/24/19 09:17 Toprol Xl PO 12.5 mg DAILY JOY Administration Ticagrelor 90 mg 04/23/19 21:00 04/24/19 09:17 Brilinta PO 90 mg BID JOY Administration Zolpidem Tartrate 5 mg 04/23/19 16:21 04/23/19 21:56 Ambien PO 5 mg HSPRN PRN Administration Insomnia - Exam Neck: no JVD Heart: RRR, no murmur Respiratory: CTAB Gastrointestinal: soft, normal bowel sounds Extremities: no clubbing, no edema Hosp A/P (1) Syncope Code(s): R55 - SYNCOPE AND COLLAPSE Status: Acute (2) Bradycardia with 31-40 beats per minute Code(s): R00.1 - BRADYCARDIA, UNSPECIFIED Status: Acute (3) CAD (coronary artery disease) Code(s): I25.10 - ATHSCL HEART DISEASE OF [place] CORONARY ARTERY W/O ANG PCTRS Status: Chronic Qualifiers: Coronary Disease-Associated Artery/Lesion type: [place] artery [place] vs. transplanted heart: [place] heart Associated angina: without angina Qualified Code(s): I25.10 - Atherosclerotic heart disease of [place] coronary artery without angina pectoris (4) HLD (hyperlipidemia) Code(s): E78.5 - HYPERLIPIDEMIA, UNSPECIFIED Status: Chronic Qualifiers: Hyperlipidemia type: unspecified Qualified Code(s): E78.5 - Hyperlipidemia , unspecified (5) HTN (hypertension) Code(s): I10 - ESSENTIAL (PRIMARY) HYPERTENSION Status: Chronic Qualifiers: Hypertension type: essential hypertension Qualified Code(s): I10 - Essential (primary) hypertension - Plan off B-ro. discuss with cardiology
--- NOTE | 2019-04-24 18:26 | PRG ---
DATE OF SERVICE: 04/24/2019 SUBJECTIVE: Mr. Zelaya had an episode of bradycardia last night. Early in the morning, he had gotten up to urinate, his heart rate dropped to about 30 beats per minute. He feels near syncopal. He had another episode of lightheadedness in the sitting position, but this was not associated with any dysrhythmia. No chest pain or arm pain. OBJECTIVE: VITAL SIGNS: His blood pressure is 117/66, pulse 62. LUNGS: Clear. CARDIAC: Normal S1, normal S2. ASSESSMENT: 1. Status post recent myocardial infarction, relatively small amount of injury in terms of troponin level with a peak troponin of 9.7. 2. Recent saphenous vein graft occlusion to the right coronary artery. The main right coronary artery is stented. The graft actually went to the posterior descending artery, the vessel is occluded. He does have previous inferior infarct as well. 3. Syncopal episode, suspect related to bradyarrhythmia, but he does have an area of previous infarct in the inferior wall with most recent ejection fraction on echocardiogram on 04/21 showing ejection fraction of 50%, inferior hypokinesis. PLAN: Electrophysiologic consultation, consideration for pacemaker insertion. The more complicated situation is that he has had a recent infarct, which does complicate the potential for more significant arrhythmias. Dr. Nicholson to be consulted tomorrow. Job ID: [id number]
[2019-04-24] MEDS: Atorvastatin Calcium 40 MG TAB PO SCH (21:23)
[2019-04-24] MEDS: Zolpidem Tartrate 5 MG TAB PO PRN (21:25)
[2019-04-25 05:25] LABS: Troponin I 1.867 ng/mL (< 0.028)
[2019-04-25] MEDS: Ondansetron ODT 4 MG TAB PO PRN ×2 (07:39→18:26)
[2019-04-25] MEDS: Enoxaparin Sodium 40 MG/0.4 ML SYRINGE SC SCH (08:15)
[2019-04-25] MEDS: TICAGRELOR 90 MG TABLET PO SCH ×2 (08:15→21:55)
[2019-04-25] MEDS: Losartan 25 MG TAB PO SCH ×2 (08:15→21:55)
[2019-04-25] MEDS: Aspirin Chewable 81 MG TAB PO SCH (08:15)
[2019-04-25] MEDS ORDERED: Iopamidol 370 76% 100 ML VIAL ONE (10:41)
--- NOTE | 2019-04-25 11:49 | PDOC.HOSPP ---
- Subjective Encounter Date: 04/25/19 Encounter Time: 11:47 Subjective: alert, no dizziness - Objective Vital Signs & Weight: Vital Signs (12 hours) Temp Pulse Resp BP Pulse Ox 04/25/19 07:27 97.6 F 66 16 113/69 95 04/25/19 03:10 97.8 F 74 16 108/63 97 Weight Weight 157 lb 7 oz I&O: 04/24/19 04/25/19 04/26/19 06:59 06:59 06:59 Intake Total 600 700 Balance 600 700 Result Diagrams: 04/23/19 11:02 04/24/19 05:23 Hospitalist ROS - Medication Medications: Active Medications Generic Name Dose Route Start Last Admin Trade Name Freq PRN Reason Stop Dose Admin Aspirin 81 mg 04/24/19 09:00 04/25/19 08:15 Aspirin Chewable PO Not Given DAILY [facility] Atorvastatin Calcium 40 mg 04/23/19 21:00 04/24/19 21:23 Lipitor PO 40 mg HS JOY Administration Enoxaparin Sodium 40 mg 04/24/19 09:00 04/25/19 08:15 Lovenox SC Not Given 09 [facility] Losartan Potassium 12.5 mg 04/23/19 21:00 04/25/19 08:15 Cozaar PO Not Given BID [facility] Ondansetron HCl 4 mg 04/23/19 16:21 04/25/19 07:39 Zofran Odt PO 4 mg Q6H PRN Administration Nausea/Vomiting Ticagrelor 90 mg 04/23/19 21:00 04/25/19 08:15 Brilinta PO Not Given BID [facility] Zolpidem Tartrate 5 mg 04/23/19 16:21 04/24/19 21:25 Ambien PO 5 mg HSPRN PRN Administration Insomnia - Exam Neck: no JVD Heart: RRR, no murmur Respiratory: CTAB Gastrointestinal: soft, non-tender, normal bowel sounds Extremities: no edema Hosp A/P (1) Syncope Code(s): R55 - SYNCOPE AND COLLAPSE Status: Acute (2) Bradycardia with 31-40 beats per minute Code(s): R00.1 - BRADYCARDIA, UNSPECIFIED Status: Acute (3) CAD (coronary artery disease) Code(s): I25.10 - ATHSCL HEART DISEASE OF [place] CORONARY ARTERY W/O ANG PCTRS Status: Chronic Qualifiers: Coronary Disease-Associated Artery/Lesion type: [place] artery [place] vs. transplanted heart: [place] heart Associated angina: without angina Qualified Code(s): I25.10 - Atherosclerotic heart disease of [place] coronary artery without angina pectoris (4) HLD (hyperlipidemia) Code(s): E78.5 - HYPERLIPIDEMIA, UNSPECIFIED Status: Chronic Qualifiers: Hyperlipidemia type: unspecified Qualified Code(s): E78.5 - Hyperlipidemia , unspecified (5) HTN (hypertension) Code(s): I10 - ESSENTIAL (PRIMARY) HYPERTENSION Status: Chronic Qualifiers: Hypertension type: essential hypertension Qualified Code(s): I10 - Essential (primary) hypertension - Plan pacemaker today
[2019-04-25] MEDS ORDERED: Clindamycin/D5W 600 mg/50 ml Premix Bag ONE (14:52)
[2019-04-25] MEDS ORDERED: Lidocaine 1% (PF) 30 ML VIAL ONE (14:52)
[2019-04-25] MEDS ORDERED: Vancomycin HCl 500 MG VIAL ONE (14:52)
[2019-04-25] MEDS ORDERED: Levofloxacin 500 mg/D5W 100 ml Premix Bag ONE (15:25)
[2019-04-25] MEDS ORDERED: Midazolam HCl 2 mg/2 ml Vial ONE (15:30)
--- NOTE | 2019-04-25 16:19 | CON ---
DATE OF CONSULTATION: REQUESTING PHYSICIAN: Stephanie Montiel MD REASON FOR REQUEST: Syncope. HISTORY OF PRESENT ILLNESS: Mr. Zelaya is a 69-year-old gentleman with a history of coronary artery disease, status post coronary artery bypass grafting and recent stenting and myocardial infarction. After released from the hospital, he has had 2 episodes of syncope, one while going from sitting to standing and another while in the car on the way to the hospital. He states that since being in the hospital, he has had couple episodes of symptoms with some lightheadedness. One was associated with a low heart rate in the middle of the night. He denies any other history of syncope other than the ones when he was ill. PAST MEDICAL HISTORY: Significant for coronary artery disease, status post coronary artery bypass grafting; hypertension; sleep apnea; and hyperlipidemia. ALLERGIES: HE IS ALLERGIC TO PENICILLINS. CURRENT MEDICATIONS: Include: 1. Losartan. 2. Lipitor. 3. Ambien. 4. Metoprolol. 5. Brilinta. FAMILY HISTORY: No early coronary artery disease or sudden cardiac . SOCIAL HISTORY: He drinks occasionally. He does not smoke or use illicit medications. He is a retired corporate pilot. REVIEW OF SYSTEMS: Reviewed. He denies nausea, vomiting, diarrhea, fever, chills, or change in vision or hearing. All others were negative other than included in the HPI. PHYSICAL EXAMINATION: VITAL SIGNS: He is afebrile with pulse of 70, blood pressure is 129/77. HEENT: Pupils are equally round and reactive to light and accommodation. Extraocular movements are intact. Nose; midline septum. No rhinorrhea or epistaxis. Throat, moist. No erythema or exudate. NECK: Supple without lymphadenopathy, JVD, or goiter. HEART: Regular rate and rhythm without murmur, gallop, or rub. LUNGS: Clear to auscultation and percussion bilaterally. ABDOMEN: Soft, nontender, and nondistended. Present bowel sounds. EXTREMITIES: Without cyanosis, clubbing, or edema. NEUROLOGIC: Cranial nerves 2 through 12 are grossly intact. Motor strength is 5/5 throughout. DIAGNOSTIC STUDIES: Electrocardiogram; sinus rhythm with old inferior myocardial infarction. Previous echocardiogram reveals an estimated ejection fraction of 50%. Monitoring has revealed sinus rhythm. There was an episode of bradycardia into the 30s while he was awake and going to the bathroom. He said he did have some lightheadedness at that time. IMPRESSION: 1. Symptomatic bradycardia. 2. Syncope. 3. Recent myocardial infarction. 4. Coronary artery disease, status post coronary artery bypass grafting and recent stenting. RECOMMENDATIONS: Mr. Zelaya, I believe, has likely had 2 problems, (1) likely recent vasovagal reaction and (2) potentially symptomatic bradycardia. With his relatively preserved ejection fraction, he has likely had lower risk of ventricular tachycardia and has had no particular demonstrations of ventricular tachycardia, but he does have potential substrate for this. His symptoms while in hospital have not been associated with any ventricular tachycardia on monitor. Based on this, I think the best plan for him will be consideration of a dual-chamber permanent pacemaker and LifeVest for 45 days. If he has any demonstration of ventricular tachycardia during that period, then he should be upgraded to an implantable cardioverter-defibrillator. Otherwise, he should continue with the permanent pacemaker. I discussed this strategy with the patient. He understands and agrees to proceed. Job ID: [id number]
--- NOTE | 2019-04-25 16:51 | RAD ---
EXAM: CHEST ONE VIEW HISTORY: Post cardiac device placement. COMPARISON: 04/23/2019 FINDINGS: There has been interval placement of a dual-lead left subclavian cardiac pacemaking device. Postsurgi song changes related to CABG are again noted. Lungs are hyperexpanded with mild chronic lung changes seen. Calcified granuloma is again seen in the left upper lobe. There is biapical pleural and parench ymal scarring which is partially calcified. Vascular calcifications are seen in the thoracic aorta. No other interval change. IMPRESSION: Interval placement of a dual-lead left subclavian cardiac pacemaking device without evidence of a pne umothorax.
[2019-04-25] MEDS: Acetaminophen 325 MG TAB PO PRN ×2 (18:26→22:04)
--- NOTE | 2019-04-25 19:28 | PRG ---
DATE OF SERVICE: 04/25/2019 Mr. Zelaya underwent pacemaker insertion today. He also had electrophysiologic consultation by Dr. Nicholson. In view of the syncopal episodes, Dr. Nicholson recommended pacemaker insertion, but also recommended a LifeVest wearable defibrillator as we do not know with 100% certainty that this could not have been ventricular arrhythmia. He has had a recent myocardial infarction, which does put him at some increased risk for ventricular arrhythmias. He also has a wall motion abnormality, severe hypokinesis of the inferior wall. Therefore, we will arrange for LifeVest prior to discharge. We will also resume metoprolol and take losartan. Plan to be home tomorrow. Job ID: [id number]
[2019-04-25] MEDS: Atorvastatin Calcium 40 MG TAB PO SCH (21:56)
[2019-04-25] MEDS: Zolpidem Tartrate 5 MG TAB PO PRN (22:04)
[2019-04-26] MEDS: Ondansetron ODT 4 MG TAB PO PRN (04:12)
[2019-04-26] MEDS: Acetaminophen 325 MG TAB PO PRN ×3 (04:12→15:48)
[2019-04-26] MEDS: Enoxaparin Sodium 40 MG/0.4 ML SYRINGE SC SCH (08:28)
[2019-04-26] MEDS: TICAGRELOR 90 MG TABLET PO SCH (08:28)
[2019-04-26] MEDS: Aspirin Chewable 81 MG TAB PO SCH (08:28)
[2019-04-26] MEDS: Losartan 25 MG TAB PO SCH (08:29)
--- NOTE | 2019-04-26 10:06 | PRG ---
DATE OF SERVICE: 04/26/2019 SUBJECTIVE: Mr. Zelaya felt lightheaded this morning. OBJECTIVE: VITAL SIGNS: His blood pressure was 106 systolic. LUNGS: Clear. CARDIAC: Normal S1, normal S2. ABDOMEN: Soft, nontender. EXTREMITIES: No edema. ASSESSMENT: 1. Recent myocardial infarction. 2. Recent outpatient episodes of syncope. 3. Some element of bradycardia noted in this hospitalization. 4. Status post pacemaker insertion. 5. Dr. Nicholson, Electrophysiology, recommended a LifeVest in view of the syncopal episodes as an outpatient in the setting of recent myocardial infarction. PLAN: 1. A LifeVest has been requested. 2. In view of the lightheadedness, we will stop losartan and continue metoprolol for now. 3. Hopefully home later today, if the LifeVest could be arranged. Job ID: [id number]
[2019-04-26] MEDS ORDERED: Polyethylene Glycol 3350 17 GM Packet PO SCH (10:15)
[2019-04-26 15:44] VITALS: BP 113/70; TEMP 97.5
--- NOTE | 2019-04-26 17:50 | DIS ---
DATE OF ADMISSION: 04/24/2019 DATE OF DISCHARGE: 04/26/2019 DISPOSITION: Discharged home. FINAL DIAGNOSES: Syncope, coronary artery disease, recent myocardial infarction , bradycardia, hypertension, dyslipidemia. DISCHARGE MEDICATIONS: 1. Ambien 5 mg at bedtime p.r.n. 2. Brilinta 90 mg twice a day. 3. Metoprolol 25 mg a day. 4. Lipitor 40 mg a day. 5. Aspirin 81 mg a day. ALLERGIES: TO PENICILLINS. DIET: Heart healthy. CODE STATUS: Full. PENDING AT TIME OF DISCHARGE: Nothing. HOSPITAL COURSE: The patient referred to the Hospitalist Service for syncope. The patient with hypertension, recent [facility] with stents, had syncope x2 prior to admission, his EKG revealed a rate of 57, UT interval 0.18, QT 0.44, QTc 0.43. He was in mild sinus bradycardia. Overnight, he had rates as low as the low 30s. He had a 2.7 second pause. He was seen in consultation by Dr. Stephanie Montiel, subsequently by electrophysiology he had a pacemaker placed on 04/25/2019. Today, because of continued occasional dizzy spells, it was decided that he needed monitor defibrillator. He did not qualify for a LifeVest. A monitor defibrillator has been placed on him through Dr. Montiel's his office. He is being discharged home. His troponins were 2.2, 2.55, 3.1, 1.8, which I thought to be considered subsequent to his recent cardiac cath and PCI, his basic metabolic profile was unremarkable. His lipid profile was normal. His CBC showed a hemoglobin of 13.7, otherwise unremarkable. Currently, he has a monitor on his chest, that will be monitored continuously through a connection with his cellphone. He is to follow up with his PCP in 1 week. He is to follow up with Dr. Montiel per his recommendations. Vital signs are stable. Cardiorespiratory exam is normal. Doing well. Job ID: [id number] [facility]
--- NOTE | 2019-04-26 19:54 | CCL ---
INDICATIONS FOR PROCEDURE: This is a 69-year-old gentleman with symptomatic bradycardia and episodes of syncope. He was advised to undergo dual chamber pacemaker insertion. He was taken to the cardiac lab aid where he underwent the procedure today without difficulties or c omplications. He was implanted with a dual chamber pacemaker from [employer], an Rita dual chamber pa cemaker with two screw-in leads. One in the atrium and one in the ventricle. Pacemaker was set with t he upper rate at 130 and the lower rate was set at 60. There were no difficulties or complications en countered. He was given 2 mg of versed for conscious sedation. Total sedation time was 33 minutes. Th roughout the procedure, he was monitored by an independent observer present for heart rate, blood pre ssure and O2 saturation. These all remained stable.
--- NOTE | 2019-04-27 13:45 | PRG ---
DATE OF SERVICE: 04/26/2019 Mr. Zelaya is doing well. He is going to be released home. We checked into the possible LifeVest, recommendation by Dr. Nicholson. The patient does not meet Medicare criteria for a LifeVest as the ejection fraction is 50%. We have not documented any ventricular arrhythmias. He has had a pacemaker placed for symptomatic bradycardia. The patient as a precaution will be given a real-time event monitor. If we detect any ventricular arrhythmias, then consideration for LifeVest could be given. The patient will be taken off losartan as it is making him lightheaded. He will continue the metoprolol. He will also continue ticagrelor, aspirin, and statin. Job ID: [id number]
--- NOTE | 2019-04-28 15:20 | EKG ---
Test Reason : Blood Pressure : / mmHG Vent. Rate : 071 BPM Atrial Rate : 071 BPM P-R Int : 174 ms QRS Dur : 104 ms QT Int : 420 ms P-R-T Axes : 077 -32 009 degrees QTc Int : 456 ms Normal sinus rhythm Left axis deviation Incomplete right bundle branch block Inferior infarct , age undetermined Abnormal ECG Confirmed by JODI JACOBSON, LUCAS ([id number]), greeting card editor ANGIE KAUR ([id number]) on 04/28/2019 3:19:58 PM Referred By: Confirmed By:LUCAS ZAPATA MD
--- NOTE | 2019-04-28 15:20 | EKG ---
Test Reason : Blood Pressure : / mmHG Vent. Rate : 067 BPM Atrial Rate : 067 BPM P-R Int : 162 ms QRS Dur : 100 ms QT Int : 404 ms P-R-T Axes : 070 -28 005 degrees QTc Int : 426 ms Normal sinus rhythm Inferior infarct , age undetermined Abnormal ECG Leftward axis #2 Confirmed by JODI JACOBSON, LUCAS ([id number]), editorial cartoonist ANGIE KAUR ([id number]) on 04/28/2019 3:20:36 PM Referred By: Confirmed By:LUCAS ZAPATA MD
== END 2019-04-26 18:24 | disposition home or self-care (01) | DRG 244 ==
LOC: ERS 10:46 → 2SW 15:02 → OBSVTOIN 04-24 13:33 → 2NO 04-25 19:22
PROVIDERS: ADMIT Internal Medicine; ATTEND Internal Medicine
PROC: 0JH606Z Insertion of Pacemaker, Dual Chamber into Chest Subcutaneous Tissue and Fascia, Open Approach (ICD-10-PCS; principal; 2019-04-25)
PROC: 02H63JZ Insertion of Pacemaker Lead into Right Atrium, Percutaneous Approach (ICD-10-PCS; 2019-04-25)
PROC: 02HK3JZ Insertion of Pacemaker Lead into Right Ventricle, Percutaneous Approach (ICD-10-PCS; 2019-04-25)
DX: R00.1 Bradycardia, unspecified (principal); R55 Syncope and collapse; I10 Essential (primary) hypertension; E78.5 Hyperlipidemia, unspecified; I25.10 Atherosclerotic heart disease of native coronary artery without angina pectoris; I25.2 Old myocardial infarction; Z95.1 Presence of aortocoronary bypass graft; Z79.82 Long term (current) use of aspirin; Z88.0 Allergy status to penicillin
CPT/HCPCS: 36415; 71045; 71275; 80048; 80053; 82553; 84484; 85025; 93005; 93798; 93880; 94760; 99152; 99153; C1785; C1898; J1650; J1956; J2001; J2250; J3370; J3490; Q0162; Q9966; Q9967